=== PATIENT | male | born 1940 | race Caucasian/White ===

== ENCOUNTER 2022-09-18 11:53 | Inpatient (IN) | payer MEDICARE ==
[~2022-09-18] VITALS: Ht 182.9 cm; Wt 80.3 kg
[2022-09-18 12:40] LABS: HEMATOCRIT 46.4 % (36.7-47.1); MEAN CORPUSCULAR HEMOGLOBIN 28.4 uug (23.8-33.4); MEAN CORPUSCULAR VOLUME 85.5 fL (73.0-96.2); PLATELET COUNT (AUTO) 207 K/uL (152-348)
[2022-09-18 12:50] LABS: CARBON DIOXIDE 27 mmol/L (21-32); CHLORIDE 106 mmol/L (98-107); GLUCOSE 92 mg/dL (74-106); POTASSIUM 4.1 mmol/L (3.5-5.1); UREA NITROGEN, BLOOD 26 mg/dL (7-18)
[2022-09-18 12:55] LABS: *BILIRUBIN,URIN NEGATIVE (NEGATIVE); *BLOOD, URINE NEGATIVE (NEGATIVE); *CLARITY,URINE CLEAR (CLEAR); *COLOR,URINE YELLOW (YELLOW); *KETONES,URINE NEGATIVE (NEGATIVE); *UROBILINOGEN,URINE 0.2 E.U./dl (NORMAL); LEUKOCYTE ESTERASE ,URINE NEGATIVE (NEGATIVE); NITRITE, URINE NEGATIVE (NEGATIVE); UGLUCOSE NEGATIVE (NEGATIVE)
[2022-09-18 12:59] LABS: ETHANOL < 3 MG/DL (0-0)
[2022-09-18 13:03] LABS: ALANINE AMINOTRANSFERASE 37 U/L (16-63); ALKALINE PHOSPHATASE 98 U/L (50-136); ASPARTATE AMINOTRANSFERASE 19 U/L (15-37); BILIRUBIN,DIRECT 0.1 mg/dL (0.0-0.2); BILIRUBIN,TOTAL 0.5 mg/dL (0.2-1.0); TOTAL PROTEIN, SERUM 6.9 g/dL (6.4-8.2)
[2022-09-18 13:04] LABS: THYROID STIMULATING HORMONE 2.055 mIU/mL (0.358-3.740)
[2022-09-18 13:08] LABS: *AMPHETAMINE, URINE NEGATIVE (NEGATIVE); *CANNABINOID, URINE NEGATIVE (NEGATIVE); *COCCAINE, URINE NEGATIVE (NEGATIVE); *PHENCYCLIDINE SCREEN,URINE NEGATIVE (NEGATIVE)
[2022-09-18 13:13] LABS: ACETAMINOPHEN < 2.0 ug/mL (10-30)
[2022-09-18] MEDS ORDERED: DONE10TA44 MT (14:59)
[2022-09-18] MEDS ORDERED: MAGNESIUM HYDROXIDE 30 ML LIQUID UDC PO PRN (15:15)
[2022-09-18] MEDS ORDERED: MAG HYDROX/AL HYDROX/SIMETH 30 ML LIQUID UDC PO PRN (15:15)
[2022-09-18] MEDS ORDERED: BLOOD SUGAR DIAGNOSTIC 1 EACH STRIP VI ONE (15:15)
[2022-09-18] MEDS: LORAZEPAM 0.5 MG TABLET PO PRN (16:19)
[2022-09-18 16:32] VITALS: BP 118/99
[2022-09-18] MEDS: TEMAZEPAM 7.5 MG CAPSULE PO PRN (23:38)
[2022-09-18] MEDS: ACETAMINOPHEN 325 MG TABLET PO PRN (23:38)
[2022-09-19 08:11] VITALS: BP 122/74
[2022-09-19] MEDS: LORAZEPAM 0.5 MG TABLET PO PRN ×2 (08:58→16:21)
[2022-09-19] MEDS: ACETAMINOPHEN 325 MG TABLET PO PRN (08:59)
[2022-09-19] MEDS: DIVALPROEX SPRINKLE 125 MG CAP.SPRINK PO SCH ×2 (11:34→16:21)
[2022-09-19] MEDS: ENSURE ENLIVE (VAN) 240 ML LIQUID PO SCH ×2 (12:22→16:21)
[2022-09-19 16:53] VITALS: BP 127/88
[2022-09-19 20:05] VITALS: BP 156/86
[2022-09-19] MEDS: TEMAZEPAM 7.5 MG CAPSULE PO PRN (20:15)
[2022-09-19] MEDS: MEMANTINE HCL 10 MG TABLET PO SCH (20:15)
[2022-09-19] MEDS: DONEPEZIL 5 MG TABLET PO SCH (20:15)
[2022-09-19] MEDS ORDERED: DONEPEZIL 5 MG TABLET PO SCH (21:00)
[2022-09-20] MEDS: ACETAMINOPHEN 325 MG TABLET PO PRN ×2 (03:57→23:44)
[2022-09-20] MEDS: LORAZEPAM 0.5 MG TABLET PO PRN ×3 (03:57→20:39)
[2022-09-20 07:49] VITALS: BP 123/63
[2022-09-20] MEDS: MEMANTINE HCL 10 MG TABLET PO SCH ×2 (08:45→20:39)
[2022-09-20] MEDS: DIVALPROEX SPRINKLE 125 MG CAP.SPRINK PO SCH ×2 (08:45→16:18)
[2022-09-20] MEDS: ENSURE ENLIVE (VAN) 240 ML LIQUID PO SCH ×3 (08:46→16:18)
[2022-09-20] MEDS ORDERED: DONEPEZIL 10 MG TABLET PO SCH (09:00)
[2022-09-20] MEDS: OLANZAPINE 2.5 MG TABLET PO SCH (12:34)
[2022-09-20 17:37] VITALS: BP 119/76
[2022-09-20 20:05] VITALS: BP 135/84
[2022-09-20] MEDS: DONEPEZIL 5 MG TABLET PO SCH (20:39)
[2022-09-20] MEDS ORDERED: OLANZAPINE 5 MG TABLET PO SCH (21:00)
[2022-09-20] MEDS: TEMAZEPAM 7.5 MG CAPSULE PO PRN (23:44)
[2022-09-21 08:00] VITALS: BP 139/73
[2022-09-21] MEDS: BENZTROPINE MESYLATE 0.5 MG TABLET PO SCH ×2 (10:02→21:05)
[2022-09-21] MEDS: OLANZAPINE 2.5 MG TABLET PO SCH ×2 (10:02→21:06)
[2022-09-21] MEDS: DIVALPROEX SPRINKLE 125 MG CAP.SPRINK PO SCH ×2 (10:02→16:26)
[2022-09-21] MEDS: ENSURE ENLIVE (VAN) 240 ML LIQUID PO SCH ×3 (10:03→16:26)
[2022-09-21] MEDS: MEMANTINE HCL 10 MG TABLET PO SCH ×2 (10:03→21:05)
[2022-09-21 16:00] VITALS: BP 98/71
[2022-09-21] MEDS: ACETAMINOPHEN 325 MG TABLET PO PRN (16:28)
[2022-09-21 20:20] VITALS: BP 101/66
[2022-09-21] MEDS ORDERED: OLANZAPINE 5 MG TABLET PO SCH (21:00)
[2022-09-21] MEDS: DONEPEZIL 5 MG TABLET PO SCH (21:05)
[2022-09-21] MEDS: TEMAZEPAM 7.5 MG CAPSULE PO PRN (22:25)
[2022-09-21] MEDS: LORAZEPAM 0.5 MG TABLET PO PRN (22:25)
[2022-09-22] MEDS: ACETAMINOPHEN 325 MG TABLET PO PRN (04:10)
[2022-09-22] MEDS: LORAZEPAM 0.5 MG TABLET PO PRN ×2 (04:10→23:05)
[2022-09-22 07:30] VITALS: BP 112/63
[2022-09-22] MEDS: MEMANTINE HCL 10 MG TABLET PO SCH ×2 (09:34→20:16)
[2022-09-22] MEDS: OLANZAPINE 2.5 MG TABLET PO SCH ×4 (09:34→20:15)
[2022-09-22] MEDS: DIVALPROEX SPRINKLE 125 MG CAP.SPRINK PO SCH ×3 (09:34→17:27)
[2022-09-22] MEDS: BENZTROPINE MESYLATE 0.5 MG TABLET PO SCH ×2 (09:35→20:16)
[2022-09-22] MEDS: ENSURE ENLIVE (VAN) 240 ML LIQUID PO SCH ×3 (09:35→17:31)
[2022-09-22 15:24] VITALS: BP 125/50
[2022-09-22 20:00] VITALS: BP 143/87
[2022-09-22] MEDS: DONEPEZIL 5 MG TABLET PO SCH (20:15)
[2022-09-22] MEDS: TEMAZEPAM 7.5 MG CAPSULE PO PRN (21:38)
[2022-09-23 07:30] VITALS: BP 128/78
[2022-09-23 07:44] LABS: HEMATOCRIT 47.5 % (36.7-47.1); MEAN CORPUSCULAR HEMOGLOBIN 28.3 uug (23.8-33.4); MEAN CORPUSCULAR VOLUME 85.8 fL (73.0-96.2); PLATELET COUNT (AUTO) 225 K/uL (152-348)
[2022-09-23 08:10] LABS: ALANINE AMINOTRANSFERASE 37 U/L (16-63); ALKALINE PHOSPHATASE 89 U/L (50-136); ASPARTATE AMINOTRANSFERASE 27 U/L (15-37); CARBON DIOXIDE 30 mmol/L (21-32); CHLORIDE 106 mmol/L (98-107); CREATININE 1.2 mg/dL (0.6-1.3); GLUCOSE 94 mg/dL (74-106); POTASSIUM 3.8 mmol/L (3.5-5.1); TOTAL PROTEIN, SERUM 7.2 g/dL (6.4-8.2); UREA NITROGEN, BLOOD 28 mg/dL (7-18)
[2022-09-23] MEDS: DIVALPROEX SPRINKLE 125 MG CAP.SPRINK PO SCH ×2 (08:47→13:32)
[2022-09-23] MEDS: MEMANTINE HCL 10 MG TABLET PO SCH ×2 (08:47→20:31)
[2022-09-23] MEDS: BENZTROPINE MESYLATE 0.5 MG TABLET PO SCH ×2 (08:48→20:31)
[2022-09-23] MEDS: ENSURE ENLIVE (VAN) 240 ML LIQUID PO SCH ×3 (08:48→17:00)
[2022-09-23] MEDS: OLANZAPINE 2.5 MG TABLET PO SCH ×3 (08:48→20:31)
[2022-09-23 15:47] VITALS: BP 119/79
[2022-09-23 20:00] VITALS: BP 141/91
[2022-09-23] MEDS: DONEPEZIL 5 MG TABLET PO SCH (20:31)
[2022-09-23] MEDS ORDERED: DIVALPROEX SPRINKLE 125 MG CAP.SPRINK PO SCH (21:00)
[2022-09-23] MEDS: TEMAZEPAM 7.5 MG CAPSULE PO PRN (22:49)
[2022-09-24 07:59] VITALS: BP 131/72
[2022-09-24] MEDS: MEMANTINE HCL 10 MG TABLET PO SCH ×2 (09:00→21:24)
[2022-09-24] MEDS: BENZTROPINE MESYLATE 0.5 MG TABLET PO SCH ×2 (09:00→21:24)
[2022-09-24] MEDS: ENSURE ENLIVE (VAN) 240 ML LIQUID PO SCH ×3 (09:00→18:27)
[2022-09-24] MEDS ORDERED: OLANZAPINE 2.5 MG TABLET PO SCH ×2 (09:00→13:00)
[2022-09-24] MEDS: LORAZEPAM 0.5 MG TABLET PO PRN ×2 (13:42→17:59)
[2022-09-24 16:05] VITALS: BP 119/83
[2022-09-24 21:10] VITALS: BP 96/70
[2022-09-24] MEDS: TEMAZEPAM 7.5 MG CAPSULE PO PRN (21:24)
[2022-09-24] MEDS: DIVALPROEX 500 MG TABLET.DR PO SCH (21:24)
[2022-09-24] MEDS: OLANZAPINE 2.5 MG TABLET PO SCH (21:25)
[2022-09-25 07:32] VITALS: BP 137/89
[2022-09-25] MEDS: DIVALPROEX SPRINKLE 125 MG CAP.SPRINK PO SCH (08:32)
[2022-09-25] MEDS: MEMANTINE HCL 10 MG TABLET PO SCH ×2 (08:32→20:04)
[2022-09-25] MEDS: BENZTROPINE MESYLATE 0.5 MG TABLET PO SCH ×2 (08:32→20:03)
[2022-09-25] MEDS: REMEDY ESSENTIAL ZINC PASTE 113 GM TOP SCH ×2 (09:08→20:05)
[2022-09-25] MEDS: ENSURE ENLIVE (VAN) 240 ML LIQUID PO SCH ×3 (09:08→16:09)
[2022-09-25] MEDS: OLANZAPINE 2.5 MG TABLET PO SCH ×2 (12:13→20:04)
[2022-09-25] MEDS: LORAZEPAM 0.5 MG TABLET PO PRN ×2 (12:52→20:03)
[2022-09-25 16:32] VITALS: BP 128/88
[2022-09-25 19:47] VITALS: BP 121/83
[2022-09-25] MEDS: DIVALPROEX 500 MG TABLET.DR PO SCH (20:04)
[2022-09-26 07:44] VITALS: BP 116/68
[2022-09-26] MEDS: DIVALPROEX SPRINKLE 125 MG CAP.SPRINK PO SCH ×2 (08:34→09:00)
[2022-09-26] MEDS: BENZTROPINE MESYLATE 0.5 MG TABLET PO SCH ×3 (08:34→20:43)
[2022-09-26] MEDS: MEMANTINE HCL 10 MG TABLET PO SCH ×3 (08:34→20:44)
[2022-09-26] MEDS: ENSURE ENLIVE (VAN) 240 ML LIQUID PO SCH ×4 (08:36→16:12)
[2022-09-26] MEDS: REMEDY ESSENTIAL ZINC PASTE 113 GM TOP SCH ×2 (08:37→20:44)
[2022-09-26] MEDS: OLANZAPINE 2.5 MG TABLET PO SCH (13:00)
[2022-09-26 16:19] VITALS: BP 125/71
[2022-09-26 19:50] VITALS: BP 118/66
[2022-09-26] MEDS: LORAZEPAM 0.5 MG TABLET PO PRN (20:44)
[2022-09-26] MEDS: OLANZAPINE 5 MG TABLET PO SCH (20:44)
[2022-09-26] MEDS: DIVALPROEX 500 MG TABLET.DR PO SCH (20:44)
[2022-09-26] MEDS ORDERED: OLANZAPINE 2.5 MG TABLET PO SCH (21:00)
[2022-09-27 07:46] VITALS: BP 134/71
[2022-09-27 10:07] LABS: HEMATOCRIT 47.1 % (36.7-47.1); MEAN CORPUSCULAR HEMOGLOBIN 28.8 uug (23.8-33.4); MEAN CORPUSCULAR VOLUME 86.3 fL (73.0-96.2); PLATELET COUNT (AUTO) 212 K/uL (152-348)
[2022-09-27] MEDS: REMEDY ESSENTIAL ZINC PASTE 113 GM TOP SCH ×2 (10:09→21:00)
[2022-09-27] MEDS: BENZTROPINE MESYLATE 0.5 MG TABLET PO SCH ×2 (10:09→20:54)
[2022-09-27] MEDS: ENSURE ENLIVE (VAN) 240 ML LIQUID PO SCH ×3 (10:09→17:00)
[2022-09-27] MEDS: MEMANTINE HCL 10 MG TABLET PO SCH ×2 (10:09→20:54)
[2022-09-27 10:23] LABS: CREATININE 1.2 mg/dL (0.6-1.3); POTASSIUM 3.7 mmol/L (3.5-5.1)
[2022-09-27 10:29] LABS: BILIRUBIN,TOTAL 1.1 mg/dL (0.2-1.0); TOTAL PROTEIN, SERUM 7.3 g/dL (6.4-8.2)
[2022-09-27] MEDS: OLANZAPINE 2.5 MG TABLET PO SCH (18:57)
[2022-09-27 19:51] VITALS: BP 103/77
[2022-09-27] MEDS: DIVALPROEX 250 MG TABLET.DR PO SCH (20:53)
[2022-09-27] MEDS: OLANZAPINE 5 MG TABLET PO SCH (20:53)
[2022-09-28 08:11] VITALS: BP 107/84
[2022-09-28] MEDS: MEMANTINE HCL 10 MG TABLET PO SCH ×2 (08:28→21:25)
[2022-09-28] MEDS: BENZTROPINE MESYLATE 0.5 MG TABLET PO SCH ×2 (08:28→21:25)
[2022-09-28] MEDS: REMEDY ESSENTIAL ZINC PASTE 113 GM TOP SCH ×2 (08:29→21:35)
[2022-09-28] MEDS: ENSURE ENLIVE (VAN) 240 ML LIQUID PO SCH ×3 (08:29→17:12)
[2022-09-28] MEDS: LORAZEPAM 0.5 MG TABLET PO PRN (13:26)
[2022-09-28 16:04] VITALS: BP 127/71
[2022-09-28] MEDS: OLANZAPINE 2.5 MG TABLET PO SCH (17:13)
[2022-09-28 19:49] VITALS: BP 136/78
[2022-09-28] MEDS: DIVALPROEX 250 MG TABLET.DR PO SCH (21:25)
[2022-09-28] MEDS: OLANZAPINE 5 MG TABLET PO SCH (21:35)
[2022-09-29 07:52] VITALS: BP 125/75
[2022-09-29] MEDS: BENZTROPINE MESYLATE 0.5 MG TABLET PO SCH ×2 (08:44→20:27)
[2022-09-29] MEDS: MEMANTINE HCL 10 MG TABLET PO SCH ×2 (08:44→20:26)
[2022-09-29] MEDS: ENSURE ENLIVE (VAN) 240 ML LIQUID PO SCH ×3 (08:45→16:53)
[2022-09-29] MEDS: REMEDY ESSENTIAL ZINC PASTE 113 GM TOP SCH ×2 (08:45→21:03)
[2022-09-29 12:03] LABS: HEMATOCRIT 47.6 % (36.7-47.1); MEAN CORPUSCULAR VOLUME 86.9 fL (73.0-96.2); PLATELET COUNT (AUTO) 213 K/uL (152-348)
[2022-09-29 12:31] LABS: ALANINE AMINOTRANSFERASE 55 U/L (16-63); ALKALINE PHOSPHATASE 88 U/L (50-136); ASPARTATE AMINOTRANSFERASE 30 U/L (15-37); BILIRUBIN,TOTAL 0.8 mg/dL (0.2-1.0); CARBON DIOXIDE 31 mmol/L (21-32); CHLORIDE 114 mmol/L (98-107); CREATININE 1.4 mg/dL (0.6-1.3); GLUCOSE 125 mg/dL (74-106); POTASSIUM 3.9 mmol/L (3.5-5.1); TOTAL PROTEIN, SERUM 7.2 g/dL (6.4-8.2); UREA NITROGEN, BLOOD 38 mg/dL (7-18)
[2022-09-29 14:26] LABS: *BILIRUBIN,URIN 1+ (NEGATIVE); *BLOOD, URINE NEGATIVE (NEGATIVE); *CLARITY,URINE CLEAR (CLEAR); *COLOR,URINE YELLOW (YELLOW); *KETONES,URINE 1+ (NEGATIVE); *UROBILINOGEN,URINE 0.2 E.U./dl (NORMAL); LEUKOCYTE ESTERASE ,URINE NEGATIVE (NEGATIVE); NITRITE, URINE NEGATIVE (NEGATIVE); UGLUCOSE NEGATIVE (NEGATIVE)
[2022-09-29 15:16] VITALS: BP 115/94
[2022-09-29] MEDS: OLANZAPINE 2.5 MG TABLET PO SCH (16:52)
[2022-09-29 20:08] VITALS: BP 136/78
[2022-09-29] MEDS: DIVALPROEX 250 MG TABLET.DR PO SCH (20:26)
[2022-09-29] MEDS: OLANZAPINE 5 MG TABLET PO SCH (20:26)
[2022-09-30] MEDS: BENZTROPINE MESYLATE 0.5 MG TABLET PO SCH (09:13)
[2022-09-30] MEDS: MEMANTINE HCL 10 MG TABLET PO SCH (09:13)
[2022-09-30] MEDS: REMEDY ESSENTIAL ZINC PASTE 113 GM TOP SCH (09:13)
[2022-09-30] MEDS: ENSURE ENLIVE (VAN) 240 ML LIQUID PO SCH (09:14)
== END 2022-09-30 11:15 | DRG 885 ==
LOC: ER 11:57 → GPS 14:08
PROVIDERS: ADMIT Psychiatry & Neurology Psychosomatic Medicine; ATTEND Nurse Practitioner Acute Care
DX: F29 Unspecified psychosis not due to a substance or known physiological condition (principal); G93.41 Metabolic encephalopathy; F03.911 Unspecified dementia, unspecified severity, with agitation; I67.82 Cerebral ischemia; R79.89 Other specified abnormal findings of blood chemistry
CPT/HCPCS: 36415; 70450; 71045; 80164; 84443; 84484; 85025; A4663; C1758; G0480; J3490